=== PATIENT | female | born 1965 ===

== ENCOUNTER 2017-08-25 07:15 | Day surgery (SDC) | payer OTHER ==
[2016-07-08 16:34] VITALS: BMI 44.1
[2017-08-25] MEDS ORDERED: Lactated Ringer's 500 ML IV SCH (08:15)
[2017-08-25] MEDS ORDERED: Propofol 10 mg/ml Inj (20 ML) ONE ×3 (08:46→09:10)
--- NOTE | 2017-08-25 08:54 | CP.SDSHP ---
Same Day Surgery H & P - History Proposed Procedure: colonoscopy Pre-Op Diagnosis: rectal bleeding. severe constipation - Previous Medical/Surgical History Cardiac: Hypertension, Other (hyperlipidemia, ) Endocrine/Metabolic: Thyroid Disease, Obesity, Renal Disease Neuro: Backaches, Other (L/S Disc disease, lumbar stenosis, herniated disc T12- L1, L/S radiculopathy, ) Pain: 4.Moderate Pain Previous Surgical History: C section. Kidney stone - Allergies Allergies: Allergies No Known Allergies Allergy (Verified 08/25/17 07:50) - Physical Exam Vital Signs: Vital Signs 08/25/17 07:30 Temperature 97.5 F L Pulse Rate 67 Respiratory 19 Rate Blood Pressure 155/81 H O2 Sat by Pulse 99 Oximetry Mental Status: Alert & Oriented x3 Neuro: WNL Heart: WNL Lungs: WNL GI: WNL - Impression Impression: rectal bleeding. severe constipation Pt. Evaluated Today:Candidate for Anesthesia & Procedure: Yes - Date & Time Date: 08/25/17 Time: 08:55 Short Stay Discharge - Short Stay Discharge Admitting Diagnosis/Reason for Visit: GASTROINTESTINAL HEMORRHOIDS Disposition: HOME/ ROUTINE
[2017-08-25 09:41] VITALS: TEMP 98
[2017-08-25 10:48] VITALS: BP 119/72; PULSE 70; RESP 12; O2SAT 100
== END 2017-08-25 10:35 | disposition home or self-care (01) ==
LOC: C.ENDO 07:15
PROVIDERS: ATTEND Internal Medicine Gastroenterology
DX: D12.5 Benign neoplasm of sigmoid colon (principal); K59.00 Constipation, unspecified; K64.8 Other hemorrhoids; K57.90 Diverticulosis of intestine, part unspecified, without perforation or abscess without bleeding
CPT/HCPCS: 45388; 84703; 88305; J2001; J2704; J7120

== ENCOUNTER 2018-05-14 10:06 | Emergency (ER) | payer MEDICAID, OTHER ==
[2018-05-14 10:07] VITALS: BMI 44.1
[2018-05-14 10:15] VITALS: O2SAT 98
[2018-05-14] MEDS ORDERED: Oxycodone/Acetaminophen 5/325 mg Tab PO STA (11:04)
--- NOTE | 2018-05-14 11:07 | C.PDOC ---
History Of Present Illness 52-year-old female presents to the ED for evaluation of left-sided sciatic pain x 2-3 days. Patient notes onset was after bending down to vegetable picker a heavy object and reports sudden on set with movement. Patient reports occasional radiation to left thigh that is worse with standing up from sitting and full extension. Denies weakness/numbness or direct trauma. Patient has history of right sciatica, previous surgery for multiple herniated discs on prior MRI. Patient has history of prior pain management in [place], and has received epidurals for right sciatica. Patient is on Gabapentin for restless leg syncope. Patient receives Percocet 7 tablets, which she takes as needed but no longer has at home. L SCIATIC PAIN X 2-3 DAYS. 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 SUDDEN ONSET W MOVEMENT, OCC RADIATION L THIGH. WORSE WHEN STANDING UP FROM SITTING, FULL EXTENSION. NO WEAK/NUMB, DIRECT TRAUMA. HO R SCIATICA, PS +MULT HERNIATED DISCS ON PRIOR MRI. HO PRIOR PAIN MGMT IN [place], EPIDURALS FOR R SCIATICA. ON GABAPENTIN FOR RESTLESS LEG SYNDROME. PS RECEIVES PERCOCET 7 TABS FROM PMD, TAKES NEEDED BUT NO LONGER HAS AT HOME. EXAM MOD DIST NONTOXIC BACK LIMITED FULL EXTENSION, REPRODUC PAIN W ROM. NONTEND NEURO INTACT REMAINDER NEG Time Seen by Provider: 05/14/18 10:45 Chief Complaint (Nursing): Back Pain History Per: Patient History/Exam Limitations: no limitations Onset/Duration Of Symptoms: Days (2-3) Current Symptoms Are (Timing): Still Present Quality Of Discomfort: "Pain" Associated Symptoms: denies: New Weakness, New Numbness Additional History Per: Patient Past Medical History Reviewed: Historical Data, Nursing Documentation, Vital Signs Vital Signs: Last Vital Signs Temp 98.3 F 05/14/18 10:10 Pulse 79 05/14/18 10:10 Resp 20 05/14/18 10:10 BP 153/93 H 05/14/18 10:10 Pulse Ox 98 05/14/18 11:23 - Medical History PMH: Anxiety, Arthritis, Back Problems, Depression, HTN, Hypercholesterolemia, Hyperlipidemia, Kidney Stones, Chronic Kidney Disease Denies: Diabetes, Hepatitis, HIV, Seizures, Sexually Transmitted Disease Surgical History: No Surg Hx Family History: States: Unknown Family Hx - Social History Hx Alcohol Use: Yes Hx Substance Use: Yes (marijuana) - Immunization History Hx Tetanus Toxoid Vaccination: (unk) Hx Influenza Vaccination: Yes Hx Pneumococcal Vaccination: (unk) Review Of Systems Musculoskeletal: Positive for: Back Pain, Other (left thigh ) Neurological: Negative for: Weakness, Numbness Physical Exam - Physical Exam Appears: Other (in moderate distress ) Skin: Normal Color, Warm, Dry Head: Atraumatic, Normacephalic Eye(s): bilateral: Normal Inspection Oral Mucosa: Moist Neck: Supple Chest: Symmetrical, No Deformity, No Tenderness Cardiovascular: Rhythm Regular, No Murmur Respiratory: Normal Breath Sounds, No Rales, No Rhonchi, No Wheezing Back: No Vertebral Tenderness, No Paraspinal Tenderness, Other (limited full extension, reproducible pain with range of motion. nontender ) Extremity: Normal ROM, Capillary Refill (less than 2 seconds ) Neurological/Psych: Oriented x3, Normal Speech, Normal Cognition ED Course And Treatment O2 Sat by Pulse Oximetry: 98 (on RA) Pulse Ox Interpretation: Normal Progress Note: Decadron PO, Motrin PO, Percocet PO, Zofran PO given. Disposition Counseled Patient/Family Regarding: Diagnosis, Need For Followup, Rx Given - Disposition Referrals: YOUR,PMD [Other] Disposition: HOME/ ROUTINE Disposition Time: 11:07 Condition: IMPROVED Prescriptions: oxyCODONE/Acetaminophen [Percocet 5/325 mg Tab] 1 ea PO QID #8 tab Instructions: Sciatica (DC) Forms: [facility] [employer] (Egyptian), Work Excuse - Clinical Impression Clinical Impression: Sciatica - Scribe Statement The provider has reviewed the documentation as recorded by the Scribe (Ghada Freeman) Provider Attestation: All medical record entries made by the Scribe were at my direction and personally dictated by me. I have reviewed the chart and agree that the record accurately reflects my personal performance of the history, physical exam, medical decision making, and the department course for this patient. I have also personally directed, reviewed, and agree with the discharge instructions and disposition.
[2018-05-14] MEDS ORDERED: Oxycodone/Acetaminophen 5/325 mg Tab ONE (11:20)
[2018-05-14 11:39] VITALS: BP 127/87; PULSE 70; RESP 16; TEMP 98.7
== END 2018-05-14 11:39 | disposition home or self-care (01) ==
LOC: C.ER 10:06
DX: M54.32 Sciatica, left side (principal); E78.00 Pure hypercholesterolemia, unspecified; E78.5 Hyperlipidemia, unspecified; I12.9 Hypertensive chronic kidney disease with stage 1 through stage 4 chronic kidney disease, or unspecified chronic kidney disease; N18.9 Chronic kidney disease, unspecified; G25.81 Restless legs syndrome
CPT/HCPCS: 99284; J8540

== ENCOUNTER 2018-08-23 09:12 | Emergency (ER) | payer OTHER ==
[2018-08-23 09:12] VITALS: BMI 44.1
[2018-08-23 09:17] VITALS: BP 129/84; PULSE 80; RESP 16; TEMP 98.6; O2SAT 98
--- NOTE | 2018-08-23 09:35 | C.PDOC ---
History Of Present Illness 52 year old female presents to the ED for evaluation of left upper back pain that radiates to her neck and left arm for two weeks. She states the pain is worse with movement of her left shoulder and left arm. She has been taking Ibuprofen without relief. Patient denies fever, chills, cough, rash or recent falls. Time Seen by Provider: 08/23/18 09:20 Chief Complaint (Nursing): Back Pain History Per: Patient History/Exam Limitations: no limitations Onset/Duration Of Symptoms: Other (2 weeks ) Current Symptoms Are (Timing): Still Present Quality Of Discomfort: "Pain" Previous Symptoms: Back Pain, Neck Pain Exacerbating Factor(s): Movement Additional History Per: Patient Past Medical History Reviewed: Historical Data, Nursing Documentation, Vital Signs Vital Signs: Last Vital Signs Temp 98.6 F 08/23/18 09:15 Pulse 80 08/23/18 09:15 Resp 16 08/23/18 09:15 BP 129/84 08/23/18 09:15 Pulse Ox 98 08/23/18 09:15 - Medical History PMH: Anxiety, Arthritis, Back Problems, Depression, HTN, Hypercholesterolemia, Hyperlipidemia, Kidney Stones, Chronic Kidney Disease Denies: Diabetes, Hepatitis, HIV, Seizures, Sexually Transmitted Disease Surgical History: No Surg Hx Family History: States: Unknown Family Hx - Social History Hx Alcohol Use: Yes Hx Substance Use: Yes (marijuana) - Immunization History Hx Tetanus Toxoid Vaccination: (unk) Hx Influenza Vaccination: Yes Hx Pneumococcal Vaccination: (unk) Review Of Systems Constitutional: Negative for: Fever, Chills Respiratory: Negative for: Cough Musculoskeletal: Positive for: Neck Pain, Arm Pain (left), Back Pain (left, upper ) Skin: Negative for: Rash Physical Exam - Physical Exam Appears: Non-toxic, Other (in moderate pain, tearful ) Skin: Normal Color, Warm, Dry Head: Atraumatic, Normacephalic Eye(s): bilateral: Normal Inspection Oral Mucosa: Moist Neck: Normal ROM, No Midline Cervical Tenderness, Supple, Other (tenderness along left lateral neck on palpation ) Chest: Symmetrical, No Deformity, No Tenderness Cardiovascular: Rhythm Regular, No Murmur Respiratory: Normal Breath Sounds, No Rales, No Rhonchi, No Wheezing Back: No Vertebral Tenderness Extremity: Tenderness (to left posterior shoulder on palpation ), Capillary Refill (less than 2 seconds ) Neurological/Psych: Oriented x3, Normal Speech, Normal Cognition ED Course And Treatment O2 Sat by Pulse Oximetry: 98 (on RA) Pulse Ox Interpretation: Normal Progress Note: Valium PO, Toradol IM, and Prednisone PO given. Arm sling applied by environmental field technician. On reassessment, patient is resting comfortably, showing no signs of distress and reports an improvement in her symptoms. Patient is stable for discharge. She is advised to follow up with PMD within 1-2 days for further evaluation. Medical Decision Making Medical Decision Making: [place] Rx Reviewed: 08/05/2018 1 08/05/2018 GABAPENTIN 300 MG CAPSULE 120.0 30 TA DAMON [id number] JOURN ([id number]) 0 Comm Ins [place] 06/05/2018 1 04/16/2018 GABAPENTIN 300 MG CAPSULE 120.0 30 TA DAMON [id number] JOURN ([id number]) 2 [place] 05/14/2018 1 05/14/2018 OXYCODONE-ACETAMINOPHEN 5-325 8.0 2 MA HO, [id number] JOURN ([id number]) 0 30.0 MME [place] 05/13/2018 1 04/16/2018 GABAPENTIN 300 MG CAPSULE 120.0 30 TA DAMON [id number] JOURN ([id number]) 1 [place] 04/16/2018 1 04/16/2018 OXYCODONE-ACETAMINOPHEN 5-325 7.0 7 TA DAMON [id number] JOURN ([id number]) 0 7.5 [place] 04/16/2018 1 04/16/2018 GABAPENTIN 300 MG CAPSULE 120.0 30 TA DAMON [id number] JOURN ([id number]) 0 [place] 02/22/2018 1 12/03/2017 GABAPENTIN 300 MG CAPSULE 120.0 30 TA DAMON [id number] JOURN ([id number]) 3 [place] 01/25/2018 1 12/03/2017 GABAPENTIN 300 MG CAPSULE 120.0 30 TA DAMON [id number] JOURN ([id number]) 2 [place] 01/05/2018 1 01/05/2018 OXYCODONE-ACETAMINOPHEN 5-325 30.0 10 TA DAMON [id number] JOURN ([id number]) 0 22.5 [place] 12/03/2017 1 12/03/2017 OXYCODONE-ACETAMINOPHEN 5-325 20.0 7 TA DAMON [id number] JOURN ([id number]) 0 21.43 MME Comm Ins [place] Disposition Counseled Patient/Family Regarding: Diagnosis, Need For Followup, Rx Given - Disposition Referrals: Kayleen Garrett DO [[facility]] - Disposition: HOME/ ROUTINE Disposition Time: 10:55 Condition: STABLE Additional Instructions: FOLLOW UP WITH YOUR DOCTOR IN 1-2 DAYS USE MEDICATIONS NEEDED RETURN TO ER IF SYMPTOMS WORSEN Prescriptions: Diazepam [Valium] 2 mg PO BID PRN #14 tablet PRN Reason: musle spasm Naproxen [Naprosyn] 1 tab PO BID PRN #25 tab PRN Reason: Pain predniSONE [predniSONE Tab] 40 mg PO DAILY #6 tab Instructions: Radiculopathy (DC) Forms: [employer] (Romanian) Print Language: MALTESE - Clinical Impression Clinical Impression: Cervical radiculopathy - Scribe Statement The provider has reviewed the documentation as recorded by the Scribe (Ghada Freeman) Provider Attestation: All medical record entries made by the Scribe were at my direction and personally dictated by me. I have reviewed the chart and agree that the record accurately reflects my personal performance of the history, physical exam, medical decision making, and the department course for this patient. I have also personally directed, reviewed, and agree with the discharge instructions and disposition.
== END 2018-08-23 11:09 | disposition home or self-care (01) ==
LOC: C.ER 09:12
DX: M54.12 Radiculopathy, cervical region (principal)
CPT/HCPCS: 96372; 99284; J1885

== ENCOUNTER 2018-12-23 15:32 | Outpatient (CLI) | payer OTHER | END 2018-12-23 15:33 | disposition home or self-care (01) | LOC: C.MAMMO 15:32 | DX: Z12.31 Encounter for screening mammogram for malignant neoplasm of breast (principal) ==

== ENCOUNTER 2019-01-17 07:26 | Outpatient (CLI) | payer OTHER | END 2019-01-17 07:27 | disposition home or self-care (01) | LOC: C.USIC 07:26 | DX: N94.89 Other specified conditions associated with female genital organs and menstrual cycle (principal) ==